=== PATIENT | female | born 1970 | race African-American/Black ===

== ENCOUNTER 2016-05-26 14:27 | Inpatient (IN) | payer MEDICAID ==
[~2016-05-26] VITALS: Ht 170.2 cm; Wt 69.1 kg
[2016-05-26] VITALS (8 sets, daily range): BP systolic 95–162; BP diastolic 67–113; Ht 170.2 cm; Wt 69.1 kg
[2016-05-26 15:28] LABS: HEMATOCRIT 40.3 % (36.0-48.0); MCH 30.2 pg (26.0-34.0); MCHC 34.7 g/dL (31.0-37.0); MEAN PLATELET VOLUME 11.6 fL (7.4-10.4); PLATELET COUNT 110 10x3/uL (130-400); RBC 4.63 10x6/uL (4.00-5.40); RDW 14.2 % (11.5-14.5)
[2016-05-26 15:37] LABS: APTT 30.7 SECONDS (22.8-39.4); INR 1.08 (0.85-1.17); PROTIME 13.9 SECONDS (11.6-15.0)
[2016-05-26 15:39] LABS: WBC 1.5 10x3/uL (4.8-10.8)
[2016-05-26 15:49] LABS: ALBUMIN 2.2 g/dL (3.4-5.0); ANION GAP 25.1 mmol/L (8-16); BILIRUBIN - TOTAL 1.21 mg/dL (0.2-1.3); CALCIUM 7.4 mg/dL (8.5-10.1); CARBON DIOXIDE 18.3 mmol/L (21.0-32.0); PROTEIN - SERUM 6.5 g/dL (6.4-8.2); TROPONIN-I 0.019 ng/mL (0.000-0.060)
[2016-05-26 15:52] LABS: D-DIMER-QUANTITATIVE 12.28 ug/mLFEU (0.20-0.54)
[2016-05-26 15:53] LABS: POTASSIUM - SERUM 2.4 mmol/L (3.5-5.1)
[2016-05-26 16:11] LABS: BASOPHILS 1 % (0.0-2.0); LYMPHOCYTES 31 % (15-50); MONOCYTES 5 % (2-11); NEUTROPHILS 22 % (40-80)
[2016-05-26 16:12] LABS: PLATELET ESTIMATE DECREASED; TOXIC GRANULATION 2+
--- NOTE | 2016-05-26 17:25 | NUR ---
PT ARRIVED AT THIS TIME TO UNIT FROM ER VIA BED. ACCOMPANIED BY HOSPITAL STAFF. OXIMIZER IN PLACE AT 15L. PT ALERT AND ORIENTED. WILL CONTINUE PLAN OF CARE.
--- NOTE | 2016-05-26 17:32 | NUR ---
Patient Name: ELIZABETH WALLIS Admission Status: ER Accout number: [id number] Admission Date: 05-26-2016 : 1970 Admission Diagnosis: pneumonia w/ septicemia Attending: ALONDRA Current LOS: 1 Anticipated DC Date: 05-30-2016 Planned Disposition: Home [place]: [place] [employer] [facility] Discharge Planning Comments: Cm met with patient to complete initial discharge planning assessment. Patient gave consent to complete assessment. Patient reports she lives at home with her daughter. She is independent in her care at home. She does not use DME or have community resources at this time. Patient very short of breath and o2 sat 87%. CM spoke to patients nurse who placed patient on non-rebreathe. Sat increased to 91%. Pulse in the 130-140 range. MD also made aware of patient pulse ox and pulse. Patient plans to return home at discharge. Unsure of patient needs at this time. CM will continue to follow and assist with dc plan/needs. Community Cultural Development Officer: Flora Mcgill RN, [facility] [phone] Is the patient Alert and Oriented? Yes 0 * How many steps to enter\exit or inside your home? 4 0 * PCP Dr. Pichardo 0 * Pharmacy [facility] on [address] 0 * Preadmission Environment Home with Family 0 * ADLs Independent 0 * Other Equipment none 0 * List name and contact numbers for known caregivers / representatives who currently or will assist patient after discharge: Carlos Stinson - daughter - [phone] * Community resources currently utilized None 0 * Additional services required to return to the preadmission environment? No 0 * Can the patient safely return to the preadmission environment? Yes 0 * Has this patient been hospitalized within the prior 30 days at any hospital? No
--- NOTE | 2016-05-26 19:00 | NUR ---
1899: Pt rec'd resting HOB 45 degrees with eyes open. Pupils JAIRON+ bilat. 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 Pt denies pain, but coughs frequently and states she is sore. Pt tachypnea 40's with Vapotherm 40L/100% Lungs are coarse throughout LF with auscultation. Pt temp is 101.[address] oral[address] S1S2 regular ST 120's on CM. PPPx4=bilat. Left arm PIV with NS with 40 mEQ KCL infusing at 150 cc/hr. ABD soft NT BSx4. Pt denies difficulty with elimination.
--- NOTE | 2016-05-26 19:45 | NUR ---
1944: Called Dr. Medeiros regarding pt coughing. New order rec'd and placed in [facility]. Notified [facility] for override.
--- NOTE | 2016-05-26 20:00 | NUR ---
2000: Dr. Carey here at bedside. Update provided.
--- NOTE | 2016-05-26 20:15 | NUR ---
2015: Pt requested something to drink. Gatoraide provided and pt able to swallow without difficulty. Pt states; "thank you, that is good."
--- NOTE | 2016-05-26 20:25 | NUR ---
2024: Pt requested bed thomas. Pt urinated 300cc dark UOP. Pt appears to be menstrating at this time as well. Linen changed under patient and pt repositoned to HOB 45 degrees.
--- NOTE | 2016-05-26 21:20 | NUR ---
2119: Pt lethargic, but answers questions. Pt remains on Vapotherm unit 40L/100% with RR 40+ bpm SPO2 96% on CM. RT in room for ABG.
--- NOTE | 2016-05-26 21:35 | NUR ---
2135: Pt respirations decreased at this time and remains lethargic. Pt HR decreased to 80's. Code called at this time for Resp Fx. Crash cart to room. RT at bedside applying AMBU bag. Please see code sheet(s). (3)
--- NOTE | 2016-05-26 23:08 | NUR ---
2308: Pt is asystole. Pt pronounced by ER MD Dr. Quijano and code stopped. Family in ICU family room notified by myself and Dr. Quijano.
--- NOTE | 2016-05-27 | NUR ---
0000: Notified Inspector And Clerk (Marcus Bowser) of . Notified [facility] to send FRANKY/Inspector And Clerk Report. JORDAN called and pt does not meet criteria for donation. Ok to release body to from Inspector And Clerk and JORDAN obtained.
--- NOTE | 2016-05-27 00:05 | NUR ---
0005: Post mortem care done and family in to see patient. FRANKY completed and sent to [facility]. Notified Malgorzata for request of service.
--- NOTE | 2016-05-27 01:00 | NUR ---
0100: Patient rec'd by Malgorzata ZHU.
--- NOTE | 2016-05-27 10:14 | HP ---
PATIENT: ELIZABETH ROBERT MEDICAL RECORD: [id number] ACCOUNT: [id number] LOCATION:[facility] D.2306 : [birth year] ADMISSION DATE: 05/26/16 HISTORY AND PHYSICAL EXAMINATION HISTORY OF PRESENT ILLNESS: Ms. Robert is a 46-year-old -[place] female who presents to the Emergency Room with increasing shortness of breath, fatigue, coughing for the last 4 days. Upon presentation, she was found to have bilateral pneumonia involving the right upper lobe and 3/4 of the left lobe. She had a white count of 1.5. She is hypoxic, but maintaining her sats at this time. No acidosis as noted, she is compensating. She is admitted to the ICU, pulmonary has been consulted. PAST MEDICAL HISTORY: She denies any significant medical problems in the past. She has not seen a doctor in a number of years and has denied any recent problems. PAST SURGICAL HISTORY: None. ALLERGIES: GRASS. No medical allergies. MEDICATIONS: None. FAMILY HISTORY: Noncontributory. SOCIAL HISTORY: The patient is unemployed. She does not smoke. She states she drinks about 2 beers a day and she lives with her daughter. REVIEW OF SYSTEMS: She denies any fever at that time. She does complain of increasing shortness of breath, cough and wheezing. She states she has lost a few pounds in the last few days, but otherwise her weight has been pretty stable. She denies any nausea or vomiting. She denies any recent change in bladder or bowel habits. PHYSICAL EXAMINATION: GENERAL: She is in moderate distress, moderately ill at this time in the ICU. She is tachypneic. HEENT: Head is normocephalic, sclerae nonicteric. Mucous membranes are a little dry. HEART: Irregular and tachycardic. LUNGS: With bilateral coarse sounds. ABDOMEN: Soft. EXTREMITIES: Lower extremities revealed no edema. NEUROLOGIC: Without any gross focal deficits. IMPRESSION: 1. Bilateral pneumonia. 2. Acute respiratory failure. 3. Neutropenia. PLAN: Admit ICU, cultures, IV antibiotics, pulmonary consult, DVT prophylaxis. See orders for plan. TRANSINT:[id number] Voice Confirmation ID: [id number] DOCUMENT ID: [id number] HISTORY AND PHYSICAL [id number] KWAME ROBERTLLRegulo Li CONSTANTIN MATHEW DO at 1014 CC: [id number] DICTATION DATE: 05/26/161826 [employer] OPERATOR: 05/26/16 2354 DIS IN 05/26/16 [place] [id number] [place] [address]
[2016-05-29 10:17] LABS: HEPATITIS C ANTIBODY <0.1 (0.0-0.9)
[2016-05-30 15:22] LABS: AEROBE ID Final report (())
--- NOTE | 2016-06-08 09:40 | PN ---
PATIENT:ELIZABETH WALLIS MEDICAL RECORD: [id number] LOCATION:D.ICU D.230 ADMISSION DATE: 05/26/16 PROGRESS NOTE DATE OF SERVICE: 05/26/2016 CODE BLUE NOTE I was working as an Emergency Room physician. Jennifer sorto was called overhead. I responded immediately with the ER team as well as the ICU team. This was a very lengthy CODE. Reportedly, the patient has been diagnosed with influenza. She was increasingly dyspneic throughout the day. When I arrived at the bedside, she was undergoing a bag valve mask ventilation. I identified that there was no pulse. Chest compressions were begun. Several times during the resuscitative process, we would get a faint pulse and then lose the pulse. Most of the time the prominent rhythms were PEA or a slow junctional rhythm or agonal rhythm or asystole. She actually had significant blood pressure during the chest compressions indicating that she was receiving good quality chest compressions. We were able to ventilate her and she frequently had an excellent waveform on the O2 sat monitor and frequently had good oxygen saturations. However, unfortunately she had a significant amount of aspiration. This required frequent suctioning. She was a difficult intubation. The patient had a short thyromental length. She also had a very narrow mouth opening ability. I attempted intubations utilizing a Gao blade as well as a video endoscope and bougie. All of these were made difficult due to the inability for us to open her mouth widely. At one time when we did regain a pulse, she clenched down with her teeth and was given succinylcholine. Even with optimal positioning, she kept regurgitating fluid. The intubation itself was atraumatic and was with a 7.0 mm endotracheal tube utilizing a Gao 2 blade. There was good CO2 return on the monitor. The resuscitative attempts were very lengthy due to her young age. You can see the jennifer sorto note for the length of the resuscitation as well as a number of different modalities that we employed. We were aggressive at the beginning, pacing quickly and unfortunately her heart never really responded to the pacing. I went out and talked to the family twice. The second time was to inform them that their loved one had had . My impression of the cause of is influenza which led to respiratory failure, which has led to aspiration pneumonia and then hypoxic cardiac arrest. TRANSINT:[id number] Voice Confirmation ID: [id number] DOCUMENT ID: [id number] ALDO ORANTES MD at 0940 CC: [id number] DICTATION DATE: 05/27/16 0206 PRODUCTION EXPEDITER: 05/28/16 0138 DIS IN 05/26/16 [facility] [address] [place] [address]
== END 2016-05-26 23:08 | DRG 871 ==
LOC: D.ER 14:27 → D.ICU 16:31
PROVIDERS: Emergency Medicine; ADMIT Family Medicine
PROC: 0BH17EZ Insertion of Endotracheal Airway into Trachea, Via Natural or Artificial Opening (ICD-10-PCS; principal; 2016-05-26)
PROC: 5A1935Z Respiratory Ventilation, Less than 24 Consecutive Hours (ICD-10-PCS; principal; 2016-05-26)
PROC: 5A12012 Performance of Cardiac Output, Single, Manual (ICD-10-PCS; principal; 2016-05-26)
DX: A41.9 Sepsis, unspecified organism (principal); J96.01 Acute respiratory failure with hypoxia; J69.0 Pneumonitis due to inhalation of food and vomit; G93.41 Metabolic encephalopathy; N17.9 Acute kidney failure, unspecified; E87.1 Hypo-osmolality and hyponatremia; D70.9 Neutropenia, unspecified; J11.1 Influenza due to unidentified influenza virus with other respiratory manifestations; J30.9 Allergic rhinitis, unspecified; E86.0 Dehydration; E87.6 Hypokalemia; D69.6 Thrombocytopenia, unspecified